=== PATIENT | female | born 1980 | race American Indian/Alaskan Native ===

== ENCOUNTER 2016-08-16 14:00 | Emergency (ER) | payer SELFPAY ==
--- NOTE | 2016-08-16 15:47 | Emergency Department Report ---
ED General Adult HPI - General Chief complaint: Upper Respiratory Infection Stated complaint: HEAD /THROAT/CHEST PAIN/CONGESTION Time Seen by Provider: 08/16/16 14:45 Source: patient Mode of arrival: Ambulatory Limitations: No Limitations - History of Present Illness Initial comments: 36 year old female presents with cough, sinus congestion, and sinus pressure for about a week. states taking otc medication with no relief. denies fever, cp , sob, abdominal pain - Related Data Previous Rx's Medication Instructions Recorded Last Taken Type Albuterol Sulfate [Ventolin HFA] 2 puff IH Q4H PRN #1 hfa.aer.ad 03/07/14 Rx Albuterol Sulfate [Proair 90 mcg IH Q4HR PRN #2 aer.pow.ba 04/18/16 Unknown Rx Respiclick] Benzonatate [Tessalon Perles] 100 mg PO Q8HR PRN #30 capsule 04/18/16 Unknown Rx Ketorolac [Toradol] 10 mg PO Q6H PRN #20 tablet 04/18/16 Unknown Rx ALBUTEROL Inhaler [ProAir HFA 2 puff IH QID PRN #1 inhalation 08/16/16 Unknown Rx Inhaler] Amoxicillin [Amoxicillin TAB] 875 mg PO BID #14 tablet 08/16/16 Unknown Rx Prednisone [predniSONE 10 mg 10 mg PO .TAPER #1 tab.ds.pk 08/16/16 Unknown Rx (6-Day Pack, 21 Tabs)] Allergies Allergy/AdvReac Type Severity Reaction Status Date / Time No Known Allergies Allergy Verified 06/06/14 09:43 ED Review of Systems ROS: Stated complaint: HEAD /THROAT/CHEST PAIN/CONGESTION Other details as noted in HPI Constitutional: denies: chills, fever Eyes: denies: eye pain, eye discharge, vision change ENT: congestion. denies: ear pain, throat pain Respiratory: cough. denies: shortness of breath, wheezing Cardiovascular: denies: chest pain, palpitations Endocrine: no symptoms reported Gastrointestinal: denies: abdominal pain, nausea, diarrhea Genitourinary: denies: urgency, dysuria, discharge Musculoskeletal: denies: back pain, joint swelling, arthralgia Skin: denies: rash, lesions Neurological: denies: headache, weakness, paresthesias Psychiatric: denies: anxiety, depression Hematological/Lymphatic: denies: easy bleeding, easy bruising ED Past Medical Hx - Past Medical History Previous Medical History?: Yes Hx Asthma: Yes Additional medical history: back spasms/pain - Surgical History Past Surgical History?: Yes Additional Surgical History: TUBAL LIGATION - Social History Smoking Status: Never Smoker Substance Use Type: Alcohol, Prescribed, Other - Medications Home Medications: Home Medications Medication Instructions Recorded Confirmed Last Taken Type Albuterol Sulfate [Ventolin HFA] 2 puff IH Q4H PRN #1 hfa.aer.ad 03/07/1404/17/16 Rx Albuterol Sulfate [Proair 90 mcg IH Q4HR PRN #2 aer.pow.ba 04/18/16 Unknown Rx Respiclick] Benzonatate [Tessalon Perles] 100 mg PO Q8HR PRN #30 capsule 04/18/16 Unknown Rx Ketorolac [Toradol] 10 mg PO Q6H PRN #20 tablet 04/18/16 Unknown Rx ALBUTEROL Inhaler [ProAir HFA 2 puff IH QID PRN #1 inhalation 08/16/16 Unknown Rx Inhaler] Amoxicillin [Amoxicillin TAB] 875 mg PO BID #14 tablet 08/16/16 Unknown Rx Prednisone [predniSONE 10 mg 10 mg PO .TAPER #1 tab.ds.pk 08/16/16 Unknown Rx (6-Day Pack, 21 Tabs)] ED Physical Exam - General Limitations: No Limitations General appearance: alert, in no apparent distress - Head Head exam: Present: atraumatic, normocephalic - Eye Eye exam: Present: normal appearance - ENT ENT exam: Present: normal orophraynx, mucous membranes moist, normal external ear exam, other (red nasal mucosa) - Neck Neck exam: Present: normal inspection, full ROM. Absent: lymphadenopathy - Respiratory Respiratory exam: Present: normal lung sounds bilaterally. Absent: respiratory distress - Cardiovascular Cardiovascular Exam: Present: regular rate, normal rhythm. Absent: systolic murmur, diastolic murmur, rubs, gallop - GI/Abdominal GI/Abdominal exam: Present: soft, normal bowel sounds - Extremities Exam Extremities exam: Present: normal inspection - Back Exam Back exam: Present: normal inspection - Neurological Exam Neurological exam: Present: alert, oriented X3 - Psychiatric Psychiatric exam: Present: normal affect, normal mood - Skin Skin exam: Present: warm, dry, intact, normal color. Absent: rash ED Course Vital Signs 08/16/16 14:27 Temperature 98.9 F Pulse Rate 92 H Respiratory 18 Rate Blood Pressure 132/74 O2 Sat by Pulse 100 Oximetry ED Medical Decision Making - Medical Decision Making patient resting comfortably at this time, VSS and NAD. Critical care attestation.: If time is entered above; I have spent that time in minutes in the direct care of this critically ill patient, excluding procedure time. ED Disposition Clinical Impression: Acute sinusitis Disposition: DISCHARGED TO HOME OR SELFCARE Is pt being admited?: No Does the pt Need Aspirin: No Condition: Good Instructions: Sinusitis (ED) Prescriptions: ALBUTEROL Inhaler [ProAir HFA Inhaler] 2 puff IH QID PRN #1 inhalation PRN Reason: Shortness Of Breath Amoxicillin [Amoxicillin TAB] 875 mg PO BID #14 tablet Prednisone [predniSONE 10 mg (6-Day Pack, 21 Tabs)] 10 mg PO .TAPER #1 tab.[id number] Referrals: PRIMARY CARE, [Primary Care Provider] - 3-5 Days [facility] [Provider Group] - 3-5 Days Forms: Work/School Release Form(ED) Time of Disposition: 15:54
[2016-08-16 16:02] VITALS: BP 130/76
== END 2016-08-16 16:03 | disposition home or self-care (01) ==
LOC: ED 14:00
DX: J01.90 Acute sinusitis, unspecified (principal); J45.909 Unspecified asthma, uncomplicated; Z98.51 Tubal ligation status; Z79.1 Long term (current) use of non-steroidal anti-inflammatories (NSAID); Z79.899 Other long term (current) drug therapy
CPT/HCPCS: 99282

== ENCOUNTER 2016-08-24 22:52 | Emergency (ER) | payer SELFPAY ==
[2016-08-24] MEDS ORDERED: DECADRON ONE (23:04)
[2016-08-24] MEDS ORDERED: DECADRON IM ONE (23:13)
[2016-08-24] MEDS ORDERED: DUONEB 0.5 MG-3 MG/3 ML SOLN IH ONE (23:16)
[2016-08-24] MEDS ORDERED: PULMICORT IH ONE (23:17)
--- NOTE | 2016-08-25 02:24 | Emergency Department Report ---
ED Asthma HPI - General Chief Complaint: Adult Asthma Stated Complaint: DIFFICULTY IN BREATHING Time Seen by Provider: 08/25/16 02:01 Source: patient Mode of arrival: Ambulatory Limitations: No Limitations - History of Present Illness Initial Comments: 36-year-old female presenting to emergency room with asthma attack. Patient states that she takes her albuterol treatment start having tightness in her chest and difficulty breathing. Patient denies of having any chest pain or productive cough. MD Complaint: "asthma attack" -: Gradual, hour(s) (2) Asthma History: adult onset Severity: moderate Context: allergen exposure Associated Symptoms: dry cough Treatments Prior to Arrival: inhaled bronchodilator - Related Data Current Asthma Therapy: inhaled bronchodilator Previous Rx's Medication Instructions Recorded Last Taken Type Albuterol Sulfate [Ventolin HFA] 2 puff IH Q4H PRN #1 hfa.aer.ad 03/07/14 Rx Albuterol Sulfate [Proair 90 mcg IH Q4HR PRN #2 aer.pow.ba 04/18/16 Unknown Rx Respiclick] Benzonatate [Tessalon Perles] 100 mg PO Q8HR PRN #30 capsule 04/18/16 Unknown Rx Ketorolac [Toradol] 10 mg PO Q6H PRN #20 tablet 04/18/16 Unknown Rx ALBUTEROL Inhaler [ProAir HFA 2 puff IH QID PRN #1 inhalation 08/16/16 Unknown Rx Inhaler] Amoxicillin [Amoxicillin TAB] 875 mg PO BID #14 tablet 08/16/16 Unknown Rx Prednisone [predniSONE 10 mg 10 mg PO .TAPER #1 tab.ds.pk 08/16/16 Unknown Rx (6-Day Pack, 21 Tabs)] Azithromycin [Zithromax Z-LEANDRO] 0 mg PO DAILY #1 pack 08/25/16 Unknown Rx Cetirizine HCl [ZyrTEC] 10 mg PO DAILY #20 tab.chew 08/25/16 Unknown Rx predniSONE [Deltasone] 20 mg PO QDAY #10 tab 08/25/16 Unknown Rx Allergies Allergy/AdvReac Type Severity Reaction Status Date / Time No Known Allergies Allergy Verified 06/06/14 09:43 ED Review of Systems ROS: Stated complaint: DIFFICULTY IN BREATHING Other details as noted in HPI Comment: All other systems reviewed and negative Constitutional: denies: chills, fever Eyes: denies: eye pain, eye discharge, vision change ENT: denies: ear pain, throat pain Respiratory: cough, shortness of breath, wheezing Cardiovascular: denies: chest pain, palpitations Endocrine: no symptoms reported Gastrointestinal: denies: abdominal pain, nausea, diarrhea Genitourinary: denies: urgency, dysuria, discharge Musculoskeletal: denies: back pain, joint swelling, arthralgia Skin: denies: rash, lesions Neurological: denies: headache, weakness, paresthesias Psychiatric: denies: anxiety, depression Hematological/Lymphatic: denies: easy bleeding, easy bruising ED Past Medical Hx - Past Medical History Previous Medical History?: Yes Hx Asthma: Yes Additional medical history: back spasms/pain - Surgical History Past Surgical History?: Yes Additional Surgical History: TUBAL LIGATION - Social History Smoking Status: Never Smoker Substance Use Type: None - Medications Home Medications: Home Medications Medication Instructions Recorded Confirmed Last Taken Type Albuterol Sulfate [Ventolin HFA] 2 puff IH Q4H PRN #1 hfa.aer.ad 03/07/1404/17/16 Rx Albuterol Sulfate [Proair 90 mcg IH Q4HR PRN #2 aer.pow.ba 04/18/16 Unknown Rx Respiclick] Benzonatate [Tessalon Perles] 100 mg PO Q8HR PRN #30 capsule 04/18/16 Unknown Rx Ketorolac [Toradol] 10 mg PO Q6H PRN #20 tablet 04/18/16 Unknown Rx ALBUTEROL Inhaler [ProAir HFA 2 puff IH QID PRN #1 inhalation 08/16/16 Unknown Rx Inhaler] Amoxicillin [Amoxicillin TAB] 875 mg PO BID #14 tablet 08/16/16 Unknown Rx Prednisone [predniSONE 10 mg 10 mg PO .TAPER #1 tab.ds.pk 08/16/16 Unknown Rx (6-Day Pack, 21 Tabs)] Azithromycin [Zithromax Z-LEANDOR] 0 mg PO DAILY #1 pack 08/25/16 Unknown Rx Cetirizine HCl [ZyrTEC] 10 mg PO DAILY #20 tab.chew 08/25/16 Unknown Rx predniSONE [Deltasone] 20 mg PO QDAY #10 tab 08/25/16 Unknown Rx ED Physical Exam - General Limitations: No Limitations General appearance: alert, in no apparent distress - Head Head exam: Present: atraumatic, normocephalic - Eye Eye exam: Present: normal appearance - ENT ENT exam: Present: mucous membranes moist - Neck Neck exam: Present: normal inspection - Respiratory Respiratory exam: Present: normal lung sounds bilaterally, wheezes (mild difuse) . Absent: respiratory distress - Cardiovascular Cardiovascular Exam: Present: regular rate, normal rhythm. Absent: systolic murmur, diastolic murmur, rubs, gallop - GI/Abdominal GI/Abdominal exam: Present: soft, normal bowel sounds - Extremities Exam Extremities exam: Present: normal inspection - Back Exam Back exam: Present: normal inspection - Neurological Exam Neurological exam: Present: alert, oriented X3 - Psychiatric Psychiatric exam: Present: normal affect, normal mood - Skin Skin exam: Present: warm, dry, intact, normal color. Absent: rash ED Course Vital Signs 08/24/16 08/24/16 08/24/16 22:56 23:23 23:35 Temperature 99.4 F Pulse Rate 107 H Pulse Rate [ 103 H 104 H Anterior Bilateral Throughout] Respiratory 22 Rate Respiratory 24 22 Rate [Anterior Bilateral Throughout] Blood Pressure 129/94 [Right] O2 Sat by Pulse 98 Oximetry - Reevaluation(s) Reevaluation #1: Patient was given IM steroid in the emergency room. Upon reevaluation patient felt much better and her lungs were clear. Patient denies any shortness of breath or chest tightness. 08/25/16 02:20 08/25/16 03:09 Patient was reassessed and denies of any chest pain or shortness of breath feeling much better as per patient SAYS IMPROVED SINCE. vitals signs have also improved since triage. ED Medical Decision Making - EKG Data EKG shows normal: sinus rhythm Rate: tachycardia - EKG Data Interpretation: normal EKG - Radiology Data Radiology results: report reviewed, image reviewed Critical care attestation.: If time is entered above; I have spent that time in minutes in the direct care of this critically ill patient, excluding procedure time. ED Disposition Clinical Impression: Asthmatic bronchitis with acute exacerbation Acute asthma exacerbation Qualifiers: Asthma severity: mild intermittent Qualified Code(s): J45.21 - Mild intermittent asthma with (acute) exacerbation Disposition: DISCHARGED TO HOME OR SELFCARE Is pt being admited?: No Does the pt Need Aspirin: No Condition: Good Instructions: Asthma (ED) Prescriptions: Azithromycin [Zithromax Z-LEANDRO] 0 mg PO DAILY #1 pack Cetirizine HCl [ZyrTEC] 10 mg PO DAILY #20 tab.chew predniSONE [Deltasone] 20 mg PO QDAY #10 tab Referrals: PRIMARY CARE, [Primary Care Provider] - 3-5 Days Forms: Work/School Release Form(ED)
--- NOTE | 2016-08-25 02:36 | XRay Report ---
FINAL REPORT PROCEDURE: XR CHEST ROUTINE 2V TECHNIQUE: PA and lateral chest radiographs were obtained. CPT 52387 HISTORY: MORENITA, preg test ordered, send for report COMPARISON: No prior studies are available for comparison. FINDINGS: Heart: Normal. Mediastinum/Vessels: Normal. Lungs/Pleural space: Normal. Bony thorax: No acute osseous abnormality. Other: IMPRESSION: Normal examination.
[2016-08-25 03:19] VITALS: BP 121/77
== END 2016-08-25 03:21 | disposition home or self-care (01) ==
LOC: ED 22:52
DX: J45.21 Mild intermittent asthma with (acute) exacerbation (principal)
CPT/HCPCS: 71020; 81025; 93005; 93010; 94640; 96372; 99284; J1100